=== PATIENT | female | born 1995 | race Caucasian/White ===

== ENCOUNTER 2024-02-16 11:42 | Outpatient (CLI) | payer OTHER, MEDICAID, SELFPAY | END 2024-02-16 11:43 | disposition home or self-care (01) | LOC: NFLDREF 11:42 | PROVIDERS: Visit Provider Advanced Practice Midwife | DX: A60.00 Herpesviral infection of urogenital system, unspecified (principal) | CPT/HCPCS: 87529 ==

== ENCOUNTER 2024-02-26 15:48 | Outpatient (CLI) | payer OTHER, MEDICAID, SELFPAY ==
--- NOTE | 2024-02-26 16:00 | US_ITS ---
Patient: EDUARDO CM Facility:?[facility] Patient ID:?[id number] Site Patient ID:?[id number]. Site :?[id number] Study:?US-OB Pelvis OB F/U-02/26/2024 5:15:39 PM Ordering Physician:?Crystal Santillan Final Report: INDICATION: F/U spine and kidneys lmt on anatomy scan COMPARISON: 02/09/2024 TECHNIQUE: Real time uriostegui scale imaging of the fetus was performed. FINDINGS: Sonographic imaging demonstrates a single living intrauterine gestation. Fetus demonstrates a regular cardiac rate of 154 beats per minute. Fetus has a vertex position. The placenta lies posteriorly. Amniotic fluid volume appears normal. Single deepest vertical pocket: 4.9 cm. The cervical, thoracic and lumbar spine are well visualized and appear normal. Left kidney is normal. Right kidney may be within the pelvis. IMPRESSION: Normal spine. Possible right pelvic kidney. Left kidney normal in position. Dictated by Elias Eldridge MD @ 02/27/2024 9:39:24 AM Signed by:?Elias Eldridge MD @02/27/2024 9:39:24 AM (Electronic Signature)
== END 2024-02-26 15:49 | disposition home or self-care (01) ==
LOC: US 15:49
PROVIDERS: Visit Provider Advanced Practice Midwife
DX: O35.FXX0 Maternal care for other (suspected) fetal abnormality and damage, fetal musculoskeletal anomalies of trunk, not applicable or unspecified (principal); O35.8XX0 Maternal care for other (suspected) fetal abnormality and damage, not applicable or unspecified; Z3A.00 Weeks of gestation of pregnancy not specified
CPT/HCPCS: 76816

== ENCOUNTER 2024-04-01 10:34 | Outpatient (CLI) | payer OTHER, MEDICAID, SELFPAY | END 2024-04-01 10:35 | disposition home or self-care (01) | LOC: NFLDREF 04-18 23:38 | PROVIDERS: Visit Provider Advanced Practice Midwife | DX: Z34.83 Encounter for supervision of other normal pregnancy, third trimester (principal) | CPT/HCPCS: 86592; 87086 ==

== ENCOUNTER 2024-05-10 11:04 | Outpatient (CLI) | payer OTHER, MEDICAID, SELFPAY ==
--- NOTE | 2024-05-10 11:15 | CRLHL7_ITS ---
For Patients: As a result of the Century Cures Act, medical imaging exams and procedure reports are released immediately into your electronic medical record. You may view this report before your referring provider. If you have questions, please contact your health care provider. OB/BPP ULTRASOUND FOLLOWUP 05/10/2024 CLINICAL HISTORY: Measuring small for dates. COMPARISON: 02/26/24, 02/09/24, 12/31/23. FINDINGS: Single gestation. Cervix: Not visualized. Positioning: Caden Breech. Amniotic Fluid: 5.9 cm. Placenta: Transabdominal Posterior. Dopplers: Heart Rate: 157 bpm. BIOMETRY: BDP: 8 cm, 32 weeks 0 days. 9% HC: 31.1 cm, 34 weeks 6 days. 44% AC: 31.8 cm, 35 weeks 5 days. 95% FL: 6.5 cm, 33 weeks 4 days. 39% EFW: 2479 grams, 5 lb 7 oz. age by this US: 34 weeks 0 days. CECILIA by this US: 06/21/24. Percentile by CECILIA: 75% IMPRESSION: 1. Overall estimated weight is at the 75th percentile. 2. BPD is at the 9th percentile while head circumference is at the 44th percentile. 3. Abdominal circumference is at the 95th percentile; however, this measurement is likely less accurate than ideal due to difficult visualization of the abdomen from positioning and age. Timothy Parnell M.D. Body/Diagnostic Radiologist [email or web address] Transcribed: 1:16 pm DW/Dictated by: Timothy Parnell MD @ 05/11/2024 11:41:00 AM (Electronically Signed)
== END 2024-05-10 11:05 | disposition home or self-care (01) ==
LOC: US 11:04
PROVIDERS: PCP Family Medicine; Visit Provider Advanced Practice Midwife
DX: O36.5930 Maternal care for other known or suspected poor fetal growth, third trimester, not applicable or unspecified (principal); Z3A.32 32 weeks gestation of pregnancy
CPT/HCPCS: 76816; 82728

== ENCOUNTER 2024-06-03 10:11 | Outpatient (CLI) | payer OTHER, MEDICAID, SELFPAY ==
[2024-06-04 11:39] LABS: Strep B DNA Probe Negative (Negative)
[2024-06-04 13:10] LABS: Strep B Susceptibility Needed? No
== END 2024-06-03 10:12 | disposition home or self-care (01) ==
PROVIDERS: PCP Family Medicine; Visit Provider Advanced Practice Midwife
DX: Z34.83 Encounter for supervision of other normal pregnancy, third trimester (principal); D64.9 Anemia, unspecified
CPT/HCPCS: 82728; 87081; 87653

== ENCOUNTER 2024-06-28 19:40 | Inpatient (IN) | payer OTHER, MEDICAID, SELFPAY ==
[2024-06-28] VITALS (12 sets, daily range): BP systolic 100–137; BP diastolic 56–78; PULSE 101–122; TEMP 36.4–36.5; O2SAT 90–98
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
--- NOTE | 2024-06-28 21:08 | W.PM.OBVAGDE ---
OB Procedure Vag Delivery Mother Details Mother Details: Irma is a 28 year-old, 2, now Para 2, admitted on 06/28/24 at 40.4 weeks gestation. : 2 Para: 2 Weeks Gestation: 40.4 Admission Date: 06/28/24 Additional Details Amniotic Membrane Status: SROM Amniotic Membrane Rupture Date: 06/28/24 Amniotic Membrane Rupture Time: 20:28 Amniotic Membrane Fluid Description: Clear Analgesia/Anesthesia Type: None Waterbirth: No Pitcoin: Yes ([facility] only) Intrapartal Events: Precipitous Labor <3 Hrs Labor Onset: 18:56 Complete: 20:19 Pushin:19 Heart: heart tones during second stage were reassuring via intermittent monitoring. Delivery Details Delivery Date: 06/28/24 Delivery Time: 20:35 Route of delivery: Infant Gender: Male Viability: Alive; Heart Rate Present Position at Delivery: OA Delivery Details: Patient was admitted for spontaneous onset of labor. She transitioned to a labor room and labored in the tub and progressed normally. When she began to feel the urge to push she was escorted from the tub to the mat on the bathroom floor. Patient was assumed complete with pushing at 2018. SROM of clear fluid while pushing at 2027, forebag ruptured just before delivery. of a viable male at 2034 in kneeling position next to the tub. Vertex delivered OA. No nuchal cord or shoulder. Body delivered easily and without incident. passed to mothers abdomen with a vigorous cry. Cord was clamped and cut at > 5 minutes. APGARS were 8 at one minute and 9 at five minutes respectively. Mouth was bulb suctioned. Intact placenta with a 3 vessel cord delivered spontaneously at 2050. Patient was then escorted from the floor to the bed. Fundus firm. Small 1st degree was identified and using shared decision making with the patient we agreed that repair was not needed as it was not bleeding and well approximated. EBL 200 cc. Mother and baby stable; mother plans to breastfeed. weight pending. 1 Minute Interval Total Score: 8 5 Minute Interval Total Score: 9 Additional Details Shoulder Dystocia: No Placenta Delivery Time: 20:35 Placental Delivery Description: Spontaneous Procedure Done: Global Blood Loss: 200 Laceration: Perineal - 1st Degree (Not repaired) Blood Loss Measurement Type: EBL (Patient escorted from tub and delivered just next to it) Bakri Used: No Sponge/Need Count Correct: Yes Cord Vessel Description: 3 Vessels Event Summary Status: Mother and were stable after delivery. Disposition: floor
[2024-06-28] MEDS: OXYTOCIN 10 UNIT/ML INJ IM (21:22)
[2024-06-29 01:20] VITALS: BP 102/65; PULSE 98; RESP 18; TEMP 36.7; O2SAT 98
[2024-06-29 01:40] VITALS: BMI 24.4
[2024-06-29 05:26] VITALS: BP 122/74; PULSE 96; RESP 18; TEMP 36.4; O2SAT 96
[2024-06-29 09:12] VITALS: BP 111/79; PULSE 93; RESP 16; TEMP 36.6; O2SAT 96
--- NOTE | 2024-06-29 09:25 | PM.OBPNVD1 ---
OB - PN:Subj Subjective Date Seen: 06/29/24 Narrative: Irma is a 28 y.o. who was admitted to [facility] & [facility] for labor.? She had an uncomplicated NVD.? ?? The patient feels well.? The pain is well controlled with current medications.? She has no new complaints.? She is breast feeding and reports things are going well.? the patient has done well.? Vitals have been stable.? She has remained afebrile.? Has a good appetite, is tolerating a general diet.? She is voiding without difficulty.? She is passing gas and has not had a bowel movement.? She is ambulating and denies any dizziness.? Has Small amount of rubra lochia.? OB - PN: Obj Exam Physical Exam: Vital signs: Temp Pulse Resp BP Pulse Ox O2 Del Method 97.8 F 93 16 111/79 96 Room Air 06/29/24 09:12 06/29/24 09:12 06/29/24 09:12 06/29/24 09:12 06/29/24 09:12 06/29/24 09:12 Narrative: GENERAL APPEARANCE:? normal affect, alert, no distress? MOOD:? appropriate? HEENT: normocephalic, neck supple, full ROM? CHEST:? Symmetrical chest wall movement.? Normal respiratory effort.? Clear to auscultation ? HEART:? regular rate and rhythm? ABDOMEN:? soft, non-tender. Uterine fundus is firm, at Umbilicus, Midline and is appropriate for the stage of recovery.? Bowel sounds present.? PERINEUM:? mild edema of the perineum, there is a 1st degree laceration that is healing well.? EXTREMITIES:? normal and no edema? OB - PN: A/P Delivery Assessment and Plan (1) Spontaneous onset of labor: Status: Acute (2) History of herpes genitalis: Problem details: On Valtrex for suppression starting at 36 weeks Status: Acute (3) 40 weeks gestation of : Status: Acute (4) Anxiety and depression: Problem details: In therapy, declines medications Status: Acute (5) care and examination immediately after delivery: Status: Acute (6) Lactating mother: Status: Acute Plan day: 1 Plan: routine care Comments: G 2 P 2 status post uncomplicated NVD??? 1.? Continue route PP cares? 2.? .? May see if desired? 3.? Anticipate discharge home tomorrow?
[2024-06-29 12:36] VITALS: BP 110/71; PULSE 73; RESP 16; TEMP 36.4; O2SAT 97
[2024-06-29] MEDS: DOCUSATE SODIUM 100 MG CAPSULE PO (13:08)
[2024-06-29 17:00] VITALS: BP 105/72; PULSE 100; RESP 16; TEMP 36.8; O2SAT 97
[2024-06-29 19:40] VITALS: BP 102/64; PULSE 97; RESP 18; TEMP 36.9; O2SAT 99
[2024-06-30 04:03] VITALS: BP 99/61; PULSE 97; TEMP 36.4
--- NOTE | 2024-06-30 07:26 | PM.OBDSVD1 ---
DS: Providers Provider Date Seen: 06/30/24 Date of admission: 06/28/24 19:40 Primary care physician: Delfina Boateng DO Admitting Clinician: Elaine Collier CNM Attending Physician on discharge: Elaine Collier CNM Date of Discharge: 06/30/24 DS: Diagnosis Discharge Diagnosis (1) Lactating mother: Status: Acute (2) care and examination immediately after delivery: Status: Acute (3) Anemia affecting : Status: Acute (4) Anxiety and depression: Status: Acute Problem details: In therapy, declines medications Exam Narrative: Exam Narrative: GENERAL APPEARANCE:? normal affect, alert, no distress? MOOD:? appropriate? CHEST:? clear to auscultation and percussion? HEART:? regular rate and rhythm? ABDOMEN:? soft, non-tender the uterine fundus is U/2 and is appropriate for the stage of recovery. ? PERINEUM:? mild edema of the perineum, there is a 1st degree laceration that is healing well.? EXTREMITIES:? normal and no edema? Const: Vital Signs, click to edit/add: Vital Signs - 24 hr 06/29/24 09:12 06/29/24 12:36 06/29/24 17:00 Temperature 97.8 F 97.6 F 98.2 F Pulse Rate [Pulse Oximeter] 93 73 100 Respiratory Rate 16 16 16 Blood Pressure [Le ft Arm] 111/79 110/71 105/72 Pulse Oximetry 96 97 97 Oxygen Delivery Me thod Room Air Room Air Room Air 06/29/24 19:40 06/30/24 04:03 Temperature 98.5 F 97.6 F Pulse Rate [Pulse Oximeter] 97 97 Respiratory Rate 18 Blood Pressure [Le ft Arm] 102/64 99/61 Pulse Oximetry 99 Oxygen Delivery Me thod Room Air Room Air Documenting provider has reviewed patient's vital signs: yes OB - DS: Summary Hospital Course Hospital Course: Irma is a 28 year old G 2 P 2 at 40.4 weeks gestation that was admitted to the Center on 06/28/24 for spontaneous labor. She had an uncomplicated vaginal delivery. She delivered a viable male . She is breast feeding and feels it is going well. the patient has done well. She declines ibuprofen or Colace prescriptions stating that she has some at home that she will take as needed. She is unsure what she is planning for contraception but is considering vasectomy. Peripartum Data delivery method: Vaginal Laceration description: Perineal - 1st Degree Episiotomy description: None complications: none [place] Infant Gender: Male Infant Discharge Plan: Home Status at Discharge Functional status at discharge: independent ambulation Overall status at discharge: patient is progressing back to baseline Time Spent with Patient Time attestation: Total time spent providing and/or coordinating discharge services: Discharge Plan Discharge Disposition: Home, Self-Care Date of Admission: 06/28/24 19:40 Attending Provider on Discharge: Janelle Nuñez Primary Care Provider: Delfina Boateng Condition: Stable Anticipated Discharge Date/Time: 06/30/24 10:00 Discharge Medications: Continued Classic 28 mg iron- 800 mcg tablet PO DAILY ferrous sulfate [Feosol] 325 mg (65 mg iron) tablet 325 mg PO QDAY Discontinued valacyclovir [Valtrex] 500 mg tablet 500 mg PO BID 45 Days Qty: 90 0RF Discharge Orders: Discharge Order (Routine); Ordered 06/30/24 Ordered By: Janelle Nuñez Patient Education: OB Over the Counter Medication Information, OB Vaginal/Breast Feeding Additional Instructions: Discharge instructions were reviewed with the patient including signs and symptoms of infection and home going medications.? Lifting Restrictions: 20 pounds for 6? weeks? ?? Do not drive while taking narcotic pain meds.? Off Work or School for 6 weeks.? ?? Symptoms to report to doctor:? -Bleeding that saturates more than one pad per hour? -Passing clots larger than the size of a golf ball? -Pain not relieved by prescribed medication? -Fever above 100.4 degrees Fahrenheit? -A foul vaginal odor? -Difficulty in emotions, mood and functions? -Thoughts of hurting yourself and/or ? -Painful, reddened area in your breast? -Any drainage, redness or tenderness in your IV/epidural site? -Severe headache that doesn't improve after taking medications? -Changes in vision, including temporary loss of vision, blurred vision, and/or light sensitivity? -Upper abdominal pain (usually under ribs on the right side)? -Decrease in urination or painful, frequent urinating? -Chest pain? -Shortness of breath? -Tenderness or pain with redness and/swelling in the calf(s) of your leg? ?? Follow Up in clinic in 2 and 6 weeks.? ?? consultation services are available to all mothers and babies for the first year after delivery.? To make an appointment, please call [phone].? Activity Level: Activity as Tolerated and No strenuous activity Discharge Diet: Regular Follow Up Appointments: [facility] [Provider Group] Forms: MyHealth Info Instructions
[2024-06-30 07:30] VITALS: BP 100/57; PULSE 72; RESP 12; TEMP 36.5
== END 2024-06-30 09:30 | disposition home or self-care (01) | DRG 806 ==
LOC: OB OUT 19:40 → OB 06-29 00:42
PROVIDERS: Admitting Provider Advanced Practice Midwife; PCP Family Medicine; Visit Provider Advanced Practice Midwife
DX: O70.0 First degree perineal laceration during delivery (principal); O98.32 Other infections with a predominantly sexual mode of transmission complicating childbirth; Z37.0 Single live birth; O99.344 Other mental disorders complicating childbirth; F32.A Depression, unspecified; F41.9 Anxiety disorder, unspecified; Z3A.40 40 weeks gestation of pregnancy; D50.9 Iron deficiency anemia, unspecified; O99.02 Anemia complicating childbirth; A60.00 Herpesviral infection of urogenital system, unspecified; O48.0 Post-term pregnancy; O35.8XX0 Maternal care for other (suspected) fetal abnormality and damage, not applicable or unspecified; Z91.419 Personal history of unspecified adult abuse
CPT/HCPCS: 86592; G0463; A9270; J2590

== ENCOUNTER 2024-09-06 08:24 | Outpatient (RCR) | payer OTHER, MEDICAID, SELFPAY | END 2024-12-21 12:53 | disposition home or self-care (01) | PROVIDERS: PCP Family Medicine; Visit Provider Advanced Practice Midwife | DX: M62.89 Other specified disorders of muscle (principal); Z51.89 Encounter for other specified aftercare | CPT/HCPCS: 97161; 97535 ==